=== PATIENT | male | born 1960 | race Caucasian/White ===

== ENCOUNTER 2021-05-27 15:52 | Outpatient (CLI) | payer OTHER, SELFPAY ==
--- NOTE | ~2021-05-27 | XR_ITS ---
XR chest 2V DATE: 05/27/2021 16:07 INDICATION: Cough TECHNIQUE: 2 views COMPARISON: None FINDINGS: Normal heart size. Is aortic unfolding. No hilar or mediastinal enlargement is evident. Patchy mild infiltrate and/atelectasis is noted in the right mid and both lower lung zones, right gre ater than left. No pleural effusion or pulmonary vascular congestion or pneumothorax. Diffuse idiopathic skeletal hyperostosis of the thoracic spine. IMPRESSION: Mild patchy infiltrate and/or atelectasis in the right mid and both lower lung zones Reviewed, dictated and finalized at location B. [facility]
== END 2021-05-27 15:53 ==
PROVIDERS: PCP Internal Medicine; Visit Provider Internal Medicine
DX: R05.9 Cough, unspecified (principal); M48.14 Ankylosing hyperostosis [Forestier], thoracic region
CPT/HCPCS: 71046